=== PATIENT | female | born 1945 | race Caucasian/White ===

== ENCOUNTER → 2017-03-07 | Outpatient (CLI) | payer OTHER, MEDICARE ==
[~2017-03-07] MED LIST: AMLO10TA4 PO; ASPI-496 PO; BIOT5TAB PO; BUPIVACAINE/PF 0.5% ONE; CARI350T PO; CARV3.1212 PO; CHOL10003 PO; EPINEPHRINE 1 MG/ML, 1ML ONE; FLUT16SP NS; HYDR-3245 PO; HYDR25TA6 PO; LACT1CAP35 PO; LEVO75TA5 PO; LIDOCAINE/PF 1%, 30ML ONE; LOSA100T6 PO; MONT10TA9 PO; MULT-224 PO; PHEN-484 PO; POLY454P3 PO; PROTAMINE SULFATE 10 MG/ML, 5ML ONE; SENN-87 PO; THROMBIN 20,000 UNIT VIAL TP ONE; TRAZ50TA18 PO
[2017-03-07 13:43] LABS: HEMATOCRIT 43.3 % (34.6-47.8); HEMOGLOBIN 14.5 g/dL (11.7-16.4)
[2017-03-07 13:53] LABS: BLOOD UREA NITROGEN 13 mg/dL (7-18)
[2017-03-07 13:56] LABS: ASPARTATE AMINO TRANSFERASE 23 U/L (15-37)
== END | disposition home or self-care (01) ==
LOC: STAR 12:29
PROVIDERS: ATTEND Surgery
DX: Z01.818 Encounter for other preprocedural examination (principal); Z88.8 Allergy status to other drugs, medicaments and biological substances
CPT/HCPCS: 36415; 80053; 85025

== ENCOUNTER 2017-03-11 07:15 | Inpatient (IN) | payer OTHER, MEDICARE ==
[~2017-03-11] VITALS: Ht 177.8 cm; Wt 53.5 kg
[~2017-03-11 07:15] MED LIST changes: -BUPIVACAINE/PF 0.5% ONE; -EPINEPHRINE 1 MG/ML, 1ML ONE; -LIDOCAINE/PF 1%, 30ML ONE; -PROTAMINE SULFATE 10 MG/ML, 5ML ONE; -THROMBIN 20,000 UNIT VIAL TP ONE
[2017-03-11] MEDS ORDERED: LACTATED RINGERS 1,000 ML IV SCH (10:05)
[2017-03-11] MEDS ORDERED: FENTANYL PF 100 MCG/2ML ONE ×3 (11:00→13:54)
[2017-03-11] MEDS ORDERED: MIDAZOLAM 1 MG/ML, 2ML ONE ×2 (11:00→13:54)
[2017-03-11] MEDS ORDERED: PAPAVERINE 30 MG/ML, 2ML ONE (11:13)
[2017-03-11] MEDS ORDERED: HEPARIN 1,000 UNITS/ML, 10ML ONE (11:13)
[2017-03-11] MEDS ORDERED: BACITRACIN 50,000 UNIT ONE (11:13)
[2017-03-11] MEDS ORDERED: PROTAMINE SULFATE 10 MG/ML, 5ML ONE (11:13)
[2017-03-11] MEDS ORDERED: EPINEPHRINE 1 MG/ML, 1ML INFIL ONE (12:47)
[2017-03-11] MEDS ORDERED: BUPIVACAINE/PF 0.5% INFIL ONE (12:47)
[2017-03-11] MEDS ORDERED: HYDROcodone/APAP 7.5-325MG/15ML UDC PO PRN (13:00)
[2017-03-11] MEDS ORDERED: MIDAZOLAM 1 MG/ML, 2ML IV PRN (13:00)
[2017-03-11] MEDS ORDERED: LABETALOL 5MG/ML, 20ML IV PRN (13:00)
[2017-03-11] MEDS ORDERED: ALBUTEROL/IPRATROPIUM 2.5MG/0.5MG, 3 ML NPPB PRN (13:00)
[2017-03-11] MEDS ORDERED: METOPROLOL 1 MG/ML, 5ML IV PRN (13:00)
[2017-03-11] MEDS ORDERED: ONDANSETRON 2MG/ML, 2ML IVPush PRN (13:00)
[2017-03-11] MEDS ORDERED: DIAZEPAM 5 MG/ML, 2ML IVPush PRN (13:00)
[2017-03-11] MEDS ORDERED: MEPERIDINE/PF 25MG/0.5ML IVPush PRN (13:00)
[2017-03-11] MEDS ORDERED: ALBUTEROL SULFATE 2.5 MG/3 ML NPPB PRN (13:00)
[2017-03-11] MEDS ORDERED: PROMETHAZINE 25 MG/ML, 1ML IV PRN (13:00)
[2017-03-11] MEDS ORDERED: hydrALAzine 20 MG/ML, 1ML IV PRN ×2 (13:00→19:30)
[2017-03-11] MEDS ORDERED: ACETAMINOPHEN 325 MG TABLET PO PRN ×2 (13:00→18:00)
[2017-03-11] MEDS ORDERED: OXYcodone 5 MG/5 ML ORAL.SOL UDC PO PRN (13:00)
[2017-03-11] MEDS ORDERED: EPHEDRINE 50 MG/ML, 1ML IVPush PRN (13:00)
[2017-03-11] MEDS ORDERED: NEOSTIGMINE 1 MG/ML, 10ML ONE (13:15)
[2017-03-11] MEDS ORDERED: ONDANSETRON 2MG/ML, 2ML ONE (13:15)
[2017-03-11] MEDS ORDERED: GLYCOPYRROLATE 0.2MG/1ML, 5ML ONE (13:15)
[2017-03-11] MEDS ORDERED: SUCCINYLCHOLINE 20 MG/ML, 10ML ONE (13:15)
[2017-03-11] MEDS ORDERED: ROCURONIUM 10 MG/ML ONE (13:15)
[2017-03-11] MEDS ORDERED: PROPOFOL 10 MG/ML, 20ML ONE (13:15)
[2017-03-11] MEDS ORDERED: DEXAMETHASONE 4 MG/ML, 1ML ONE (13:15)
[2017-03-11] MEDS ORDERED: CEFAZOLIN 1,000 MG ONE (13:15)
[2017-03-11] MEDS ORDERED: ACETAMINOPHEN 650 MG/20.3 ML UDC ONE (13:54)
[2017-03-11] MEDS: FENTANYL PF 100 MCG/2ML IV PRN ×2 (13:55→14:05)
[2017-03-11] MEDS ORDERED: OXYcodone 5 MG/5 ML ORAL.SOL UDC ONE (13:55)
[2017-03-11] MEDS ORDERED: hydrALAzine 20 MG/ML, 1ML ONE (14:05)
[2017-03-11] MEDS ORDERED: HYDROmorphone 1 MG/ML, 1ML ONE ×2 (14:22→15:14)
[2017-03-11] MEDS: HYDROmorphone 1 MG/ML, 1ML IV PRN ×4 (14:25→15:38)
[2017-03-11] MEDS ORDERED: ASPIRIN 325 MG TABLET EC PO ONE (15:00)
[2017-03-11] MEDS: LACTATED RINGERS 1,000 ML IV SCH ×2 (18:00→23:01)
[2017-03-11] MEDS ORDERED: ONDANSETRON 2MG/ML, 2ML IV PRN (18:00)
[2017-03-11] MEDS ORDERED: MORPHINE SULFATE 4 MG/ML, 1ML IV PRN (18:00)
[2017-03-11] MEDS ORDERED: LABETALOL 5MG/ML, 20ML IVPush PRN (18:00)
[2017-03-11] MEDS: HYDROcodone/APAP 5/325 TABLET PO PRN ×2 (18:21→22:16)
[2017-03-11] MEDS ORDERED: POLYETHYLENE GLYCOL 17 GM PACKET PO PRN (18:30)
[2017-03-11] MEDS ORDERED: SENNOSIDES 8.6 MG TABLET PO PRN (18:30)
[2017-03-11 19:37] VITALS: BP 131/54
[2017-03-11] MEDS: CEFAZOLIN PMX 1GM/50ML 50 ML IVPB SCH (20:18)
[2017-03-11] MEDS: CARISOPRODOL 350 MG TABLET PO SCH (20:18)
[2017-03-11] MEDS ORDERED: AMLODIPINE 5 MG TABLET PO SCH (21:00)
[2017-03-11] MEDS ORDERED: TRAZODONE 100MG TABLET PO SCH (21:00)
[2017-03-11] MEDS ORDERED: MONTELUKAST 10 MG TABLET PO SCH (21:00)
[2017-03-12 00:36] VITALS: BP 125/63
[2017-03-12] MEDS: CEFAZOLIN PMX 1GM/50ML 50 ML IVPB SCH (04:20)
[2017-03-12 04:37] VITALS: BP 122/53
[2017-03-12] MEDS ORDERED: LEVOTHYROXINE 75 MCG TABLET PO SCH (06:00)
[2017-03-12] MEDS ORDERED: CARVEDILOL 3.125 MG TABLET PO SCH (06:00)
[2017-03-12] MEDS: HYDROcodone/APAP 5/325 TABLET PO PRN (06:24)
[2017-03-12 07:26] VITALS: BP 121/57
[2017-03-12] MEDS ORDERED: LOSARTAN 50MG TABLET PO SCH ×2 (09:00)
[2017-03-12] MEDS ORDERED: FLUTICASONE NASAL SPRAY 16GM NAS SCH (09:00)
[2017-03-12] MEDS ORDERED: HYDROCHLOROTHIAZIDE 25 MG TABLET PO SCH (09:00)
[2017-03-12] MEDS ORDERED: CHOLECALCIFEROL 1,000 UNIT TABLET PO SCH (09:00)
[2017-03-12] MEDS ORDERED: ASPIRIN 325 MG TABLET EC PO SCH (09:00)
[2017-03-12] MEDS: CARISOPRODOL 350 MG TABLET PO SCH (09:37)
[2017-03-12 13:06] VITALS: BP 115/49
== END 2017-03-12 13:21 | disposition home or self-care (01) | DRG 39 ==
LOC: ORIP 09:28 → 4NOR 17:16
PROVIDERS: ADMIT Surgery; ATTEND Surgery
PROC: 03CM0ZZ Extirpation of Matter from Right External Carotid Artery, Open Approach (ICD-10-PCS; principal; 2017-03-11 11:30)
DX: I65.21 Occlusion and stenosis of right carotid artery (principal); J44.9 Chronic obstructive pulmonary disease, unspecified; E03.9 Hypothyroidism, unspecified; I70.8 Atherosclerosis of other arteries; E78.5 Hyperlipidemia, unspecified; I10 Essential (primary) hypertension; I73.9 Peripheral vascular disease, unspecified; Z72.0 Tobacco use; Z82.49 Family history of ischemic heart disease and other diseases of the circulatory system
CPT/HCPCS: 36415; 86850; 86900; 93005; C1729; J0171; J0690; J1100; J1170; J1644; J2250; J2405; J2704; J2710; J2720; J3010; J3490; C1768; J0330; J0360; J2440; J7120

== ENCOUNTER 2017-06-10 09:06 | Day surgery (SDC) | payer OTHER, MEDICARE ==
[~2017-06-10] VITALS: Ht 177.8 cm; Wt 54.0 kg
[2017-06-10 10:04] VITALS: BP 128/63
[2017-06-10] MEDS ORDERED: SODIUM CHLORIDE 0.9% 1,000 ML IV SCH (10:11)
[2017-06-10 10:39] LABS: BASOPHILS # (AUTO) 0.02 x10^3/uL (0-0.1); BASOPHILS % (AUTO) 0 % (0-1); EOSINOPHILS # (AUTO) 0.04 x10^3/uL (0-0.4); EOSINOPHILS % (AUTO) 1 % (1-7); LYMPHOCYTES # (AUTO) 2.12 x10^3/uL (1-3.4); LYMPHOCYTES % (AUTO) 28 % (22-44); MD NO; MEAN CORPUSCULAR HEMOGLOBIN 29.5 pg (27.0-34.8); MEAN CORPUSCULAR HGB CONC 33.6 g/dL (32.4-35.8); MEAN CORPUSCULAR VOLUME 87.8 fL (80-100); MEAN PLATELET VOLUME 7.5 fL (7.4-10.4); MONOCYTES # (AUTO) 0.32 x10^3/uL (0.2-0.8); MONOCYTES % (AUTO) 4 % (2-9); NEUTROPHILS # (AUTO) 5.23 x10^3/uL (1.8-6.8); NEUTROPHILS % (AUTO) 68 % (42-75); PLATELET COUNT 182 x10^3/uL (130-400); RED CELL DISTRIBUTION WIDTH 15.8 % (9.6-15.2)
[2017-06-10 10:51] LABS: ANION GAP 5 mmol/L (5-15); CALCIUM 9.4 mg/dL (8.5-10.1); CHLORIDE 98 mmol/L (98-107)
[2017-06-10 10:52] LABS: CREATININE 0.84 mg/dL (0.55-1.02)
[2017-06-10] MEDS ORDERED: MIDAZOLAM 1 MG/ML, 2ML ONE (11:06)
[2017-06-10] MEDS ORDERED: FENTANYL PF 100 MCG/2ML ONE (11:06)
[2017-06-10] MEDS ORDERED: NALOXONE 1 MG/ML, 2ML ONE (11:07)
[2017-06-10] MEDS ORDERED: PROTAMINE SULFATE 10 MG/ML, 25ML ONE (11:07)
[2017-06-10] MEDS ORDERED: HEPARIN 1,000 UNITS/ML, 10ML ONE (11:07)
[2017-06-10] MEDS ORDERED: FLUMAZENIL 0.1 MG/1 ML, 5ML ONE (11:07)
[2017-06-10] MEDS ORDERED: NITROGLYCERIN/D5W PMX 0 ML ONE (11:07)
[2017-06-10] MEDS ORDERED: LIDOCAINE 2%, 20ML ONE (11:17)
[2017-06-10] MEDS ORDERED: CEFAZOLIN PMX 1GM/50ML 50 ML ONE (12:38)
== END 2017-06-10 16:15 ==
LOC: OUT 09:06
PROVIDERS: ATTEND Surgery
DX: I70.70 Unspecified atherosclerosis of other type of bypass graft(s) of the extremities (principal); I10 Essential (primary) hypertension; E78.5 Hyperlipidemia, unspecified; Z79.82 Long term (current) use of aspirin; J44.9 Chronic obstructive pulmonary disease, unspecified; E03.9 Hypothyroidism, unspecified; Z72.89 Other problems related to lifestyle
CPT/HCPCS: 36200; 36415; 75630; 80048; 85025; C1751; C1760; C1769; C1894; G0269; J0690; J2250; J3010; J3490; J1644; J2720; J2310

== ENCOUNTER 2017-06-17 07:52 | Inpatient (IN) | payer OTHER, MEDICARE ==
[~2017-06-17] VITALS: Ht 86.4 cm; Wt 62.9 kg
[2017-06-17 10:34] VITALS: BP 121/61
[2017-06-17] MEDS ORDERED: LACTATED RINGERS 1,000 ML IV SCH (10:37)
[2017-06-17] MEDS ORDERED: EPINEPHRINE 1 MG/ML, 1ML ONE (11:15)
[2017-06-17] MEDS ORDERED: THROMBIN 20,000 UNIT VIAL TP ONE (11:15)
[2017-06-17] MEDS ORDERED: PROTAMINE SULFATE 10 MG/ML, 5ML ONE (11:15)
[2017-06-17] MEDS ORDERED: BUPIVACAINE/PF 0.25% ONE (11:15)
[2017-06-17] MEDS ORDERED: HEPARIN 1,000 UNITS/ML, 10ML ONE (11:15)
[2017-06-17] MEDS ORDERED: FENTANYL PF 250 MCG/5ML ONE (11:39)
[2017-06-17] MEDS ORDERED: MIDAZOLAM 1 MG/ML, 2ML ONE (11:39)
[2017-06-17] MEDS ORDERED: PROPOFOL 10 MG/ML, 20ML ONE (11:40)
[2017-06-17] MEDS ORDERED: ROCURONIUM 10 MG/ML,10ML ONE (11:40)
[2017-06-17] MEDS ORDERED: CEFAZOLIN 1,000 MG ONE ×2 (11:41)
[2017-06-17] MEDS ORDERED: SODIUM CHLORIDE 0.9% PF 10ML ONE (11:41)
[2017-06-17] MEDS ORDERED: GLYCOPYRROLATE 0.4 MG/2 ML, 2ML ONE (11:41)
[2017-06-17] MEDS ORDERED: NEOSTIGMINE 1 MG/ML, 10ML ONE (11:41)
[2017-06-17] MEDS ORDERED: ONDANSETRON 2MG/ML, 2ML ONE (11:42)
[2017-06-17] MEDS ORDERED: DEXAMETHASONE 4 MG/ML, 1ML ONE ×2 (11:42)
[2017-06-17] MEDS ORDERED: ONDANSETRON 2MG/ML, 2ML IVPush PRN (12:00)
[2017-06-17] MEDS ORDERED: ALBUTEROL SULFATE 2.5 MG/3 ML NPPB PRN (12:00)
[2017-06-17] MEDS ORDERED: PROMETHAZINE 25 MG/ML, 1ML IV PRN (12:00)
[2017-06-17] MEDS ORDERED: LABETALOL 5MG/ML, 20ML IV PRN ×3 (12:00→18:30)
[2017-06-17] MEDS ORDERED: MEPERIDINE/PF 25MG/0.5ML IVPush PRN (12:00)
[2017-06-17] MEDS ORDERED: ACETAMINOPHEN 325 MG TABLET PO PRN ×3 (12:00→18:00)
[2017-06-17] MEDS ORDERED: hydrALAzine 20 MG/ML, 1ML IV PRN ×3 (12:00→21:30)
[2017-06-17] MEDS ORDERED: OXYcodone 5 MG/5 ML ORAL.SOL UDC PO PRN (12:00)
[2017-06-17] MEDS ORDERED: PHENYLEPHRINE 10 MG/ML ONE (14:27)
[2017-06-17] MEDS ORDERED: BACITRACIN 50,000 UNIT ONE (14:49)
[2017-06-17] MEDS ORDERED: OXYcodone 5 MG/5 ML ORAL.SOL UDC ONE (15:50)
[2017-06-17] MEDS ORDERED: ACETAMINOPHEN 650 MG/20.3 ML UDC ONE (15:50)
[2017-06-17] MEDS ORDERED: ASPIRIN 325 MG TABLET ONE (15:50)
[2017-06-17] MEDS ORDERED: ALBUTEROL SULFATE 2.5 MG/3 ML ONE (15:51)
[2017-06-17] MEDS: HYDROmorphone 1 MG/ML, 1ML IV PRN ×3 (15:58→16:39)
[2017-06-17] MEDS ORDERED: ASPIRIN 325 MG TABLET EC PO ONE (16:00)
[2017-06-17] MEDS ORDERED: FENTANYL PF 100 MCG/2ML ONE (16:06)
[2017-06-17] MEDS: FENTANYL PF 100 MCG/2ML IV PRN ×2 (16:08→16:15)
[2017-06-17] MEDS ORDERED: HYDROmorphone 2 MG/ML, 1ML ONE (16:16)
[2017-06-17] MEDS ORDERED: SENNOSIDES 8.6 MG TABLET PO PRN (18:00)
[2017-06-17] MEDS ORDERED: HYOSCYAMINE PO PRN (18:00)
[2017-06-17] MEDS ORDERED: SCOPOLAMINE PO PRN (18:00)
[2017-06-17] MEDS ORDERED: CARISOPRODOL 350 MG TABLET PO PRN (18:00)
[2017-06-17] MEDS ORDERED: ATROPINE PO PRN (18:00)
[2017-06-17] MEDS ORDERED: POLYETHYLENE GLYCOL 17 GM PACKET PO PRN (18:00)
[2017-06-17] MEDS ORDERED: TRAZODONE 100MG TABLET PO PRN (18:00)
[2017-06-17] MEDS ORDERED: PHENOBARBITAL PO PRN (18:00)
[2017-06-17 19:01] VITALS: BP 100/49
[2017-06-17] MEDS ORDERED: IPRATROPIUM 0.5 MG/2.5 ML INHA ONE (19:31)
[2017-06-17] MEDS ORDERED: CARVEDILOL 6.25 MG TABLET ONE (20:09)
[2017-06-17] MEDS: CARVEDILOL 3.125 MG TABLET PO SCH (20:21)
[2017-06-17] MEDS: AMLODIPINE 5 MG TABLET PO SCH (20:21)
[2017-06-17] MEDS: SODIUM CHLORIDE FLUSH 10ML SYR IVF SCH (20:22)
[2017-06-17] MEDS: HYDROcodone/APAP 5/325 TABLET PO PRN ×2 (20:26→21:03)
[2017-06-17] MEDS: IPRATROPIUM 0.5 MG/2.5 ML INHA NPPB SCH (20:30)
[2017-06-17] MEDS ORDERED: IPRATROPIUM 0.5 MG/2.5 ML INHA NPPB PRN (21:00)
[2017-06-17] MEDS: LACTATED RINGERS 1,000 ML IV SCH (21:06)
[2017-06-17] MEDS: CEFAZOLIN PMX 2GM/100ML 100 ML IVPB SCH (23:01)
[2017-06-17] MEDS ORDERED: TRAZODONE 150MG TABLET ONE (23:12)
[2017-06-17] MEDS: morphine SULFATE 10 MG/ML, 1ML IV PRN (23:14)
[2017-06-17] MEDS: TRAZODONE 100MG TABLET PO PRN (23:14)
[2017-06-17 23:29] VITALS: BP 125/65
[2017-06-18] MEDS: HYDROcodone/APAP 5/325 TABLET PO PRN ×5 (01:47→20:35)
[2017-06-18 03:19] VITALS: BP 147/62
[2017-06-18] MEDS: IPRATROPIUM 0.5 MG/2.5 ML INHA NPPB SCH ×4 (03:49→21:00)
[2017-06-18 05:44] LABS: BASOPHILS # (AUTO) 0.01 x10^3/uL (0-0.1); BASOPHILS % (AUTO) 0 % (0-1); EOSINOPHILS % (AUTO) 0 % (1-7); LYMPHOCYTES # (AUTO) 1.44 x10^3/uL (1-3.4); LYMPHOCYTES % (AUTO) 24 % (22-44); MD NO; MEAN CORPUSCULAR HEMOGLOBIN 29.9 pg (27.0-34.8); MEAN CORPUSCULAR HGB CONC 33.7 g/dL (32.4-35.8); MEAN CORPUSCULAR VOLUME 88.6 fL (80-100); MEAN PLATELET VOLUME 7.6 fL (7.4-10.4); MONOCYTES # (AUTO) 0.35 x10^3/uL (0.2-0.8); MONOCYTES % (AUTO) 6 % (2-9); NEUTROPHILS # (AUTO) 4.29 x10^3/uL (1.8-6.8); NEUTROPHILS % (AUTO) 70 % (42-75); PLATELET COUNT 114 x10^3/uL (130-400); RED BLOOD COUNT 3.74 x10^6/uL (3.82-5.3); RED CELL DISTRIBUTION WIDTH 17.2 % (9.6-15.2)
[2017-06-18 05:53] LABS: CHLORIDE 101 mmol/L (98-107)
[2017-06-18] MEDS ORDERED: LEVOTHYROXINE 100 MCG TABLET ONE (06:07)
[2017-06-18] MEDS: ENOXAPARIN 40 MG/0.4 ML SQ SCH (06:11)
[2017-06-18] MEDS: LEVOTHYROXINE 75 MCG TABLET PO SCH (06:11)
[2017-06-18] MEDS: ASPIRIN 81 MG TABLET EC PO SCH (06:11)
[2017-06-18] MEDS: CARVEDILOL 3.125 MG TABLET PO SCH ×2 (06:11→18:30)
[2017-06-18 06:12] LABS: ALBUMIN 2.8 g/dL (3.4-5.0); ANION GAP 9 mmol/L (5-15); CALCIUM 8.4 mg/dL (8.5-10.1); CREATININE 0.64 mg/dL (0.55-1.02)
[2017-06-18] MEDS: CEFAZOLIN PMX 2GM/100ML 100 ML IVPB SCH (06:14)
[2017-06-18 07:49] VITALS: BP 143/97
[2017-06-18] MEDS: LACTATED RINGERS 1,000 ML IV SCH ×2 (08:19→19:32)
[2017-06-18] MEDS: MONTELUKAST 10 MG TABLET PO SCH (09:50)
[2017-06-18] MEDS: CHOLECALCIFEROL 1,000 UNIT TABLET PO SCH (09:50)
[2017-06-18] MEDS: MULTIVITAMIN 1 TABLET PO SCH (09:50)
[2017-06-18] MEDS: LOSARTAN 50MG TABLET PO SCH (09:51)
[2017-06-18] MEDS: HYDROCHLOROTHIAZIDE 25 MG TABLET PO SCH (09:51)
[2017-06-18] MEDS: FLUTICASONE NASAL SPRAY 16GM NAS SCH (09:52)
[2017-06-18] MEDS: SODIUM CHLORIDE FLUSH 10ML SYR IVF SCH ×2 (09:53→21:00)
[2017-06-18 09:54] VITALS: BP 154/70
[2017-06-18] MEDS: morphine SULFATE 10 MG/ML, 1ML IV PRN ×2 (10:21→16:16)
[2017-06-18 13:34] VITALS: BP 127/61
[2017-06-18] MEDS ORDERED: ASPIRIN 81 MG TABLET EC PO SCH (16:00)
[2017-06-18 19:24] VITALS: BP 131/73
[2017-06-18] MEDS: POTASSIUM CHLORIDE 20 MEQ TAB.ER.PRT PO SCH ×2 (19:44→20:35)
[2017-06-18] MEDS: AMLODIPINE 5 MG TABLET PO SCH (20:35)
[2017-06-19] MEDS: TRAZODONE 100MG TABLET PO PRN (00:01)
[2017-06-19] MEDS: HYDROcodone/APAP 5/325 TABLET PO PRN ×4 (00:17→18:13)
[2017-06-19] MEDS: morphine SULFATE 10 MG/ML, 1ML IV PRN (00:17)
[2017-06-19 02:18] VITALS: BP 116/60
[2017-06-19] MEDS: IPRATROPIUM 0.5 MG/2.5 ML INHA NPPB SCH ×3 (03:00→14:46)
[2017-06-19 06:19] LABS: ANION GAP 4 mmol/L (5-15); CALCIUM 8.5 mg/dL (8.5-10.1); CHLORIDE 102 mmol/L (98-107); CREATININE 0.72 mg/dL (0.55-1.02)
[2017-06-19] MEDS: ENOXAPARIN 40 MG/0.4 ML SQ SCH (06:36)
[2017-06-19] MEDS: CARVEDILOL 3.125 MG TABLET PO SCH ×2 (06:36→18:19)
[2017-06-19] MEDS: ASPIRIN 81 MG TABLET EC PO SCH (06:36)
[2017-06-19] MEDS: LEVOTHYROXINE 75 MCG TABLET PO SCH (06:36)
[2017-06-19 07:26] VITALS: BP 127/60
[2017-06-19] MEDS: LACTATED RINGERS 1,000 ML IV SCH (07:42)
[2017-06-19] MEDS: SODIUM CHLORIDE FLUSH 10ML SYR IVF SCH (09:04)
[2017-06-19] MEDS: MULTIVITAMIN 1 TABLET PO SCH (09:05)
[2017-06-19] MEDS: MONTELUKAST 10 MG TABLET PO SCH (09:05)
[2017-06-19] MEDS: FLUTICASONE NASAL SPRAY 16GM NAS SCH (09:05)
[2017-06-19] MEDS: HYDROCHLOROTHIAZIDE 25 MG TABLET PO SCH (09:06)
[2017-06-19] MEDS: LOSARTAN 50MG TABLET PO SCH (09:06)
[2017-06-19] MEDS: CHOLECALCIFEROL 1,000 UNIT TABLET PO SCH (09:06)
[2017-06-19 13:40] VITALS: BP 102/45
[2017-06-19 18:15] VITALS: BP 140/69
== END 2017-06-19 19:15 | disposition home or self-care (01) | DRG 253 ==
LOC: ORIP 10:00 → 4NOR 17:04
PROVIDERS: ADMIT Surgery; ATTEND Surgery
PROC: 04CK0ZZ Extirpation of Matter from Right Femoral Artery, Open Approach (ICD-10-PCS; 2017-06-17)
PROC: 04UL0JZ Supplement Left Femoral Artery with Synthetic Substitute, Open Approach (ICD-10-PCS; 2017-06-17)
PROC: 04UK0JZ Supplement Right Femoral Artery with Synthetic Substitute, Open Approach (ICD-10-PCS; 2017-06-17)
PROC: 04CL0ZZ Extirpation of Matter from Left Femoral Artery, Open Approach (ICD-10-PCS; principal; 2017-06-17 12:00)
DX: I70.713 Atherosclerosis of other type of bypass graft(s) of the extremities with intermittent claudication, bilateral legs (principal); Z68.45 Body mass index [BMI] 70 or greater, adult; J44.9 Chronic obstructive pulmonary disease, unspecified; I70.213 Atherosclerosis of native arteries of extremities with intermittent claudication, bilateral legs; E03.9 Hypothyroidism, unspecified; E78.5 Hyperlipidemia, unspecified; F17.200 Nicotine dependence, unspecified, uncomplicated; I10 Essential (primary) hypertension; Z88.8 Allergy status to other drugs, medicaments and biological substances; Z88.1 Allergy status to other antibiotic agents; Z82.49 Family history of ischemic heart disease and other diseases of the circulatory system; Z84.89 Family history of other specified conditions
CPT/HCPCS: 36415; 71045; 80048; 82040; 85025; 93005; 94640; J0171; J0690; J1100; J1170; J1644; J1650; J2250; J2405; J2704; J2710; J2720; J3010; J3490; J7613; J7644; C1768; J2270; J2370; J7120

== ENCOUNTER → 2017-06-25 | Outpatient (CLI) | payer OTHER, MEDICARE | END | disposition home or self-care (01) | LOC: CFH 11:09 | PROVIDERS: ATTEND Surgery | DX: M79.604 Pain in right leg (principal); R60.0 Localized edema ==

== ENCOUNTER → 2017-11-21 | Outpatient (CLI) | payer OTHER, MEDICARE | END | disposition home or self-care (01) | LOC: CVU 07:07 | PROVIDERS: ATTEND Surgery | DX: I70.208 Unspecified atherosclerosis of native arteries of extremities, other extremity (principal); I65.23 Occlusion and stenosis of bilateral carotid arteries; I10 Essential (primary) hypertension | CPT/HCPCS: 93880; 93922; 93925 ==

== ENCOUNTER → 2018-03-06 | Outpatient (CLI) | payer OTHER, MEDICARE ==
[~2018-03-06] MED LIST changes: -LOSA100T6 PO; +LOSA100T7 PO; +OMNIPAQUE 350 MG/ML, 100ML BOTTLE ONE; +TRAZ-136 PO; -TRAZ50TA18 PO
== END | disposition home or self-care (01) ==
LOC: CFH 12:54 → EDSTATUS 13:30
PROVIDERS: ATTEND Surgery
DX: I65.23 Occlusion and stenosis of bilateral carotid arteries (principal)
CPT/HCPCS: 70498; 71275; 82565; Q9967